=== PATIENT | male | born 1985 | race Caucasian/White ===

== ENCOUNTER 2017-09-01 10:15 | Emergency (ER) | payer SELFPAY ==
[2017-09-01 11:03] VITALS: BP 137/84
--- NOTE | 2017-09-01 12:09 | Emergency Department Report ---
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 Patient is a construction coordinator. Denies any direct trauma or injuries to right elbow. States he does repetitive arm movements on a daily basis. States that when he turns his forearm or flexes and extends his right elbow it is painful. Denies any paresthesias or loss of sensation. Patient is awake alert and oriented 3. ED Review of Systems ROS: Stated complaint: RIGHT ARM PAIN Other details as noted in HPI Constitutional: denies: chills, fever Eyes: denies: eye pain, eye discharge, vision change ENT: denies: ear pain, throat pain Respiratory: denies: cough, shortness of breath, wheezing Cardiovascular: denies: chest pain, palpitations Endocrine: no symptoms reported Gastrointestinal: denies: abdominal pain, nausea, diarrhea Genitourinary: denies: urgency, dysuria Musculoskeletal: as per HPI, arthralgia (right elbow aching or 3 weeks). denies : back pain, joint swelling Skin: denies: rash, lesions Neurological: denies: headache, weakness, paresthesias Psychiatric: denies: anxiety, depression Hematological/Lymphatic: denies: easy bleeding, easy bruising ED Past Medical Hx - Social History Smoking Status: Never Smoker - Medications Home Medications: Home Medications Medication Instructions Recorded Confirmed Last Taken Type Ibuprofen [Motrin] 800 mg PO Q8HR PRN #20 tablet 09/01/17 Unknown Rx Upper Extremity Exam - Exam General: Vital signs noted. No distress. Alert and acting appropriately. Head and Torso: No HEENT Abnormality, No Neck Tenderness, No Chest/Lungs Abnormality, No Abdominal Tenderness, No Back Tenderness Shoulder Exam: Yes Normal Range of Motion in Shoulder, No Shoulder Tenderness, No Clavicle Tenderness, No Shoulder Deformity, No AC Joint Tenderness Arm Exam: No Arm/Humerus Tenderness, No Arm Deformity Elbow: No Elbow Tenderness, No Normal Range of Motion in Elbow (elbow flexion and extension clinically intact), No Elbow Deformity Forearm: Yes Pain with Pronation (slight pain with pronation and supination), Yes Pain with Supination, No Forearm Tenderness, No Forearm Deformity Wrist: Yes Normal ROM in Wrist (wrist flexion and extension intact), No Wrist Tenderness, No Wrist Deformity, No Snuffbox Tenderness (no snuffbox tenderness on exam), No Pain with Axial Thumb Compression Hand: Yes Normal ROM in Digit(s) (range of motion hand and fingers clinically intact all joints), No Hand Tenderness, No Hand Deformity, No Digit Tenderness, No Digit(s) Deformity, No Tendon Dysfunction CMS Exam: Yes Normal Distal Pulses (distal radial brachial and ulnar pulses strong to palpation, capillary refill less than 1 second, distal sensation clinically intact), Yes Normal Capillary Refill, Yes Normal Distal Sensation, No Broken Skin ED Course Vital Signs 09/01/17 11:00 Temperature 98.9 F Pulse Rate 71 Respiratory 15 Rate Blood Pressure 137/84 O2 Sat by Pulse 98 Oximetry ED Medical Decision Making - Medical Decision Making A/P: Lateral epicondylitis versus elbow bursitis 1-Serrato test positive on physical exam. I discussed this with Dr. Luo. Patient has no clinical signs of infection, distal pulses and sensation intact range of motion is clinically intact in all joints right upper extremity. Strength 5 out of 5 right upper extremity. Distal pulses and neurovascular exam normal 2-Motrin when necessary, RICU therapy, Konrad wrap right elbow 3-I referred patient to primary care and orthopedics. 4- x-ray is unremarkable Critical care attestation.: If time is entered above; I have spent that time in minutes in the direct care of this critically ill patient, excluding procedure time. ED Disposition Clinical Impression: Right lateral epicondylitis Disposition: DC-01 TO HOME OR SELFCARE Is pt being admited?: No Does the pt Need Aspirin: No Condition: Stable Instructions: Analia Elbow (ED), RICE Therapy (ED) Additional Instructions: [email or web address] Prescriptions: Ibuprofen [Motrin] 800 mg PO Q8HR PRN #20 tablet PRN Reason: Pain , Severe (7-10) Referrals: [facility] [Provider Group] - 3-5 Days [facility] MD [Staff Physician] - 3-5 Days Forms: Work/School Release Form(ED) Time of Disposition: 13:07
[2017-09-01] MEDS ORDERED: MOTRIN PO ONE (12:35)
--- NOTE | 2017-09-01 13:25 | XRay Report ---
RIGHT ELBOW THREE VIEWS: 09/01/17 10:15:00 CLINICAL: Elbow pain for three weeks. FINDINGS: No fracture or dislocation. No joint effusion. The joint spaces are normal. A small enthesophyte at the triceps insertion. The soft tissues are normal. IMPRESSION: Triceps enthesopathy and otherwise normal.
== END 2017-09-01 13:17 | disposition home or self-care (01) ==
LOC: ED 10:15
DX: M77.11 Lateral epicondylitis, right elbow (principal)
CPT/HCPCS: 99283